=== PATIENT | male | born 1990 | race African-American/Black ===

== ENCOUNTER 2021-05-19 13:28 | Emergency (ER) | payer SELFPAY ==
[~2021-05-19] VITALS: Ht 172.7 cm; Wt 67.0 kg
[2021-05-19 13:30] VITALS: BP 132/68
== END 2021-05-19 14:14 | disposition home or self-care (01) ==
LOC: ER 13:28
DX: F41.9 Anxiety disorder, unspecified (principal)
CPT/HCPCS: 99281

== ENCOUNTER 2021-05-25 07:51 | Emergency (ER) | payer SELFPAY ==
[~2021-05-25] VITALS: Ht 172.7 cm; Wt 68.0 kg
[2021-05-25] MEDS ORDERED: TOPUD MT (11:48)
[2021-05-25 12:00] VITALS: BP 117/73
== END 2021-05-25 12:02 | disposition home or self-care (01) ==
LOC: ER 07:51
DX: R07.89 Other chest pain (principal); Z98.890 Other specified postprocedural states
CPT/HCPCS: 71045; 93005; 99283